=== PATIENT | male | born 1940 | race Caucasian/White ===

== ENCOUNTER 2017-05-05 08:26 | Emergency (ER) | payer MEDICARE, BC ==
--- NOTE | 2017-05-05 09:53 | EDM.PDOC ---
ED HPI GENERAL MEDICAL PROBLEM - General Chief Complaint: ENT Problem Stated Complaint: NOSE BLEED Time Seen by Provider: 05/05/17 09:10 Source of Information: Reports: Patient, Family History Limitations: Reports: No Limitations - History of Present Illness INITIAL COMMENTS - FREE TEXT/NARRATIVE: 76-year-old male with persistent recurring left-sided epistaxis, occasionally right-sided as well. Up until this morning has been able to get it stopped, but this morning without any provocation it started bleeding out of both sides and has been persistent. It seemed to start on the left again. He is on aspirin daily but no other anticoagulants. He's had no recent trauma to the nose, he is on BiPAP and the air in their home is dry. Onset: Unknown/Unsure Severity: Moderate Associated Symptoms: Reports: No Other Symptoms - Related Data Allergies Allergy/AdvReac Type Severity Reaction Status Date / Time codeine Allergy Dizziness Verified 03/24/13 08:12 Penicillins Allergy Confusion Verified 03/24/13 08:12 Home Meds: Home Meds Hydrochlorothiazide 12.5 mg PO DAILY 03/24/13 [History] Aspirin 05/05/17 [History] Metoprolol Tartrate 05/05/17 [History] atorvaSTATin [Lipitor] 05/05/17 [History] Past Medical History Gastrointestinal History: Reports: GI Bleed Other Oncologic History: TONGUE - Past Surgical History Cardiovascular Surgical History: Reports: Valve Replacement GI Surgical History: Reports: Colonoscopy Musculoskeletal Surgical History: Reports: Arthroscopic Knee Social & Family History - Tobacco Use Years of Tobacco use: 56 Used Tobacco, but Quit: No Second Hand Smoke Exposure: No - Alcohol Use Days Per Week of Alcohol Use: 7 Number of Drinks Per Day: 2 Total Drinks Per Week: 14 - Recreational Drug Use Recreational Drug Use: No ED ROS ENT - Review of Systems Review Of Systems: See Below Constitutional: Denies: Fever, Chills HEENT: Reports: Nosebleed Respiratory: Denies: Shortness of Breath, Cough Cardiovascular: Denies: Chest Pain, Palpitations GI/Abdominal: Denies: Nausea, Vomiting Skin: Reports: No Symptoms Neurological: Denies: Headache ED EXAM, ENT - Physical Exam Exam: See Below Exam Limited By: No Limitations General Appearance: Alert, No Apparent Distress (Patient is uncomfortable but not distressed) Nose: Other (There is fresh clots and a small amount of active bleeding from the left nares after the clots were blown out of the nose bilaterally.) Head: Atraumatic Respiratory/Chest: No Respiratory Distress Course - Vital Signs Last Recorded V/S: Last Vital Signs Temp 97.0 F 05/05/17 09:01 Pulse 69 05/05/17 09:01 Resp 14 05/05/17 09:01 BP 168/76 H 05/05/17 09:01 Pulse Ox 95 05/05/17 09:01 - Re-Assessments/Exams Free Text/Narrative Re-Assessment/Exam: 05/05/17 09:52 External pressure was applied for 10-15 minutes, when removed a 5.5 cm rapid Rhino was placed in the left nares. He continued to have some intermittent slight bleeding out of the right side but it slowly improved. 05/05/17 10:20 Patient was observed for the next 45 minutes. Generally the bleeding was controlled. He is going to return for recheck tomorrow morning at which time we may remove the packing, he'll return sooner if worsening or concerns Departure - Departure Time of Disposition: 10:27 Disposition: Home, Self-Care 01 Condition: Good Clinical Impression: Epistaxis - Discharge Information Instructions: Nosebleed, Adult Referrals: PCP,None [Primary Care Provider] - Forms: ED Department Discharge Care Plan Goals: Return tomorrow morning to remove the packing, otherwise return sooner if bleeding recurs persistently despite the nasal packing being in place.
== END 2017-05-05 10:28 | disposition home or self-care (01) ==
LOC: JP.ED 08:26
DX: R04.0 Epistaxis (principal); Z88.0 Allergy status to penicillin; Z88.5 Allergy status to narcotic agent; Z79.899 Other long term (current) drug therapy
CPT/HCPCS: 30903; 99283-25

== ENCOUNTER 2017-05-05 15:20 | Emergency (ER) | payer MEDICARE, BC ==
--- NOTE | 2017-05-05 15:34 | EDM.PDOC ---
ED HPI GENERAL MEDICAL PROBLEM - General Stated Complaint: BLOODY NOSE Time Seen by Provider: 05/05/17 15:20 Source of Information: Reports: Patient, Family History Limitations: Reports: No Limitations - History of Present Illness INITIAL COMMENTS - FREE TEXT/NARRATIVE: 76-year-old male who was here earlier today and had a rapid Rhino placed in the left nares returns after failure of the balloon to hold air, and now bleeding on the right side as well. Associated Symptoms: Reports: No Other Symptoms - Related Data Allergies Allergy/AdvReac Type Severity Reaction Status Date / Time codeine Allergy Dizziness Verified 03/24/13 08:12 Penicillins Allergy Confusion Verified 03/24/13 08:12 Home Meds: Home Meds Hydrochlorothiazide 12.5 mg PO DAILY 03/24/13 [History] Aspirin 05/05/17 [History] Metoprolol Tartrate 05/05/17 [History] atorvaSTATin [Lipitor] 05/05/17 [History] Past Medical History Gastrointestinal History: Reports: GI Bleed Other Oncologic History: TONGUE - Past Surgical History Cardiovascular Surgical History: Reports: Valve Replacement GI Surgical History: Reports: Colonoscopy Musculoskeletal Surgical History: Reports: Arthroscopic Knee Social & Family History - Tobacco Use Years of Tobacco use: 56 Used Tobacco, but Quit: No Second Hand Smoke Exposure: No - Alcohol Use Days Per Week of Alcohol Use: 7 Number of Drinks Per Day: 2 Total Drinks Per Week: 14 - Recreational Drug Use Recreational Drug Use: No ED ROS ENT - Review of Systems Review Of Systems: See Below Constitutional: Denies: Fever Respiratory: Denies: Shortness of Breath GI/Abdominal: Denies: Nausea, Vomiting Skin: Reports: No Symptoms Neurological: Denies: Headache ED EXAM, ENT - Physical Exam Exam: See Below Exam Limited By: No Limitations General Appearance: Alert, No Apparent Distress Nose: Other (Active bleeding from both nares at this time) Head: Atraumatic Respiratory/Chest: No Respiratory Distress Course - Vital Signs Last Recorded V/S: Last Vital Signs Temp 97.2 F 05/05/17 15:52 Pulse 68 05/05/17 15:52 Resp 14 05/05/17 15:52 BP 176/80 H 05/05/17 15:52 Pulse Ox 96 05/05/17 15:52 - Re-Assessments/Exams Free Text/Narrative Re-Assessment/Exam: 05/05/17 15:44 A 7.5 cm rapid Rhino was placed in the left nares, and a 5.5 in the right after the patient cleared all blood clots from the nasal passageway. He'll return tomorrow afternoon to remove the packing. Departure - Departure Time of Disposition: 16:16 Disposition: Home, Self-Care 01 Condition: Fair Clinical Impression: Epistaxis - Discharge Information Instructions: Nosebleed, Adult, [id number] Referrals: PCP,None [Primary Care Provider] - Forms: ED Department Discharge Care Plan Goals: Return tomorrow afternoon for removal of nasal packing, or return sooner if difficulties or concerns.
== END 2017-05-05 16:16 | disposition home or self-care (01) ==
LOC: JP.ED 15:20
DX: R04.0 Epistaxis (principal); Z88.5 Allergy status to narcotic agent; Z88.0 Allergy status to penicillin; Z79.899 Other long term (current) drug therapy
CPT/HCPCS: 30903; 99283-25

== ENCOUNTER 2017-05-06 11:08 | Emergency (ER) | payer MEDICARE, BC ==
[2017-05-06] MEDS ORDERED: Silver Nitrate Applicator Each TOP ONE (11:25)
--- NOTE | 2017-05-06 12:56 | EDM.PDOC ---
ED HPI GENERAL MEDICAL PROBLEM - General Chief Complaint: ENT Problem Stated Complaint: BLOODY NOSE Time Seen by Provider: 05/06/17 11:45 Source of Information: Reports: Patient, Family History Limitations: Reports: No Limitations - History of Present Illness INITIAL COMMENTS - FREE TEXT/NARRATIVE: 76-year-old male in for nasal packing removal. Despite the packing being present , he still had active bleeding several times overnight from the left side. There is currently no hemorrhaging. Severity: Moderate - Related Data Allergies Allergy/AdvReac Type Severity Reaction Status Date / Time codeine Allergy Dizziness Verified 05/06/17 11:22 Penicillins Allergy Confusion Verified 05/06/17 11:22 Home Meds: Home Meds Hydrochlorothiazide 12.5 mg PO DAILY 03/24/13 [History] Aspirin 05/05/17 [History] Metoprolol Tartrate 05/05/17 [History] atorvaSTATin [Lipitor] 05/05/17 [History] Past Medical History Gastrointestinal History: Reports: GI Bleed Other Oncologic History: TONGUE - Past Surgical History Cardiovascular Surgical History: Reports: Valve Replacement GI Surgical History: Reports: Colonoscopy Musculoskeletal Surgical History: Reports: Arthroscopic Knee Social & Family History - Tobacco Use Smoking Status *Q: Never Smoker Years of Tobacco use: 56 Used Tobacco, but Quit: No Second Hand Smoke Exposure: No - Alcohol Use Days Per Week of Alcohol Use: 7 Number of Drinks Per Day: 2 Total Drinks Per Week: 14 - Recreational Drug Use Recreational Drug Use: No ED ROS ENT - Review of Systems Review Of Systems: See Below Constitutional: Denies: Fever, Chills Respiratory: Denies: Shortness of Breath GI/Abdominal: Reports: Nausea, Other (Developed some dark stools this morning from his recent bleeding). Denies: Vomiting Skin: Reports: No Symptoms ED EXAM, ENT - Physical Exam Exam: See Below Exam Limited By: No Limitations General Appearance: Alert, No Apparent Distress Nose: Other (Nasal packing is present bilaterally) Respiratory/Chest: No Respiratory Distress, Lungs Clear Course - Vital Signs Last Recorded V/S: Last Vital Signs Temp 96.8 F 05/06/17 11:42 Pulse 84 05/06/17 11:42 Resp 14 05/06/17 11:42 BP 156/86 H 05/06/17 11:42 Pulse Ox 96 05/06/17 11:42 - Orders/Labs/Meds Meds: Medications Discontinued Medications Generic Name Dose Route Start Last Admin Trade Name Charbel PRN Reason Stop Dose Admin Silver Nitrate 1 each 05/06/17 11:25 05/06/17 13:19 Silver Nitrate TOP 05/06/17 11:26 1 each ONETIME ONE Administration - Re-Assessments/Exams Free Text/Narrative Re-Assessment/Exam: 05/06/17 16:49 The right nasal packing was removed and was clean, the nares examined and was normal. The left was removed, and a small amount of hemorrhage resumed. I felt I could see the active site of bleeding on the first turbinate so this was cauterized with silver nitrate. Pressure was applied and the bleeding stopped, 30 minutes later however the patient was eating a meal and the bleeding resumed on the left side. We then applied wound seal powder, applied external pressure, and I consult the ENT in [place]. They were kind enough to agree to see him so the patient will go by private car to [place] for an ENT consultation. Departure - Departure Time of Disposition: 13:20 Disposition: DC/Tfer to Other 70 Condition: Fair Clinical Impression: Epistaxis - Discharge Information Referrals: PCP,None [Primary Care Provider] - Forms: ED Department Discharge Care Plan Goals: Go directly to the [facility] ER for reevaluation. Keep clamp on nose during transport.
== END 2017-05-06 13:21 | disposition other institution (70) ==
LOC: JP.ED 11:08
DX: R04.0 Epistaxis (principal); Z88.5 Allergy status to narcotic agent; Z88.1 Allergy status to other antibiotic agents; Z79.899 Other long term (current) drug therapy
CPT/HCPCS: 30901; 99284-25

== ENCOUNTER 2017-05-27 11:26 | Emergency (ER) | payer MEDICARE, BC ==
[2017-05-27] MEDS ORDERED: Silver Nitrate Applicator Each ONE (11:59)
--- NOTE | 2017-05-27 12:21 | EDM.PDOC ---
ED HPI GENERAL MEDICAL PROBLEM - General Chief Complaint: ENT Problem Stated Complaint: BLOODY NOSE Time Seen by Provider: 05/27/17 12:15 Source of Information: Reports: Patient, RN Notes Reviewed History Limitations: Reports: No Limitations - History of Present Illness INITIAL COMMENTS - FREE TEXT/NARRATIVE: 76-year-old gentleman presents to the emergency department today complaint of nosebleed, he has had a problem with this in the past has visited with ear nose and throat as well unfortunately this morning his nose started bleeding at around 11 AM I was unable to get it controlled at home the etiology is unknown. - Related Data Allergies Allergy/AdvReac Type Severity Reaction Status Date / Time codeine Allergy Dizziness Verified 05/27/17 11:44 Penicillins Allergy Confusion Verified 05/27/17 11:44 Home Meds: Home Meds Hydrochlorothiazide 12.5 mg PO DAILY 03/24/13 [History] Aspirin 81 g PO ASDIRECTED 05/05/17 [History] Metoprolol Tartrate 12.5 mg PO BID 05/05/17 [History] atorvaSTATin [Lipitor] 20 mg PO BEDTIME 05/05/17 [History] Past Medical History Gastrointestinal History: Reports: GI Bleed Other Oncologic History: TONGUE - Past Surgical History Other HEENT Surgeries/Procedures: NOSEBLEED Cardiovascular Surgical History: Reports: Valve Replacement GI Surgical History: Reports: Colonoscopy Musculoskeletal Surgical History: Reports: Arthroscopic Knee Social & Family History - Tobacco Use Smoking Status *Q: Unknown Ever Smoked Years of Tobacco use: 56 Used Tobacco, but Quit: No Second Hand Smoke Exposure: No - Alcohol Use Days Per Week of Alcohol Use: 7 Number of Drinks Per Day: 2 Total Drinks Per Week: 14 - Recreational Drug Use Recreational Drug Use: No ED ROS ENT - Review of Systems Review Of Systems: See Below Constitutional: Reports: No Symptoms HEENT: Reports: Nosebleed Respiratory: Reports: No Symptoms Cardiovascular: Reports: No Symptoms GI/Abdominal: Reports: No Symptoms ED EXAM, ENT - Physical Exam Exam: See Below Text/Narrative:: Mouth mucosa is moist and pink he does have bright red blood in the posterior pharynx, examination of the nose I do not appreciate any bleeding site in the left naris there is active bleeding through the left naris Exam Limited By: No Limitations General Appearance: Alert, Mild Distress ED ENT PROCEDURES - Epistaxis Procedure Indication: Epistaxis Recent anticoagulants/antiplatlets: Yes (Baby aspirin) Uncontrolled HTN: No Recent septal/nasal surgery: No Site of bleeding: Left Nare Clearing of clots: Patient Blew Nose, Suction Posterior packing: Long Inflatable Nasal Tampon Local Anesthetic Volume: 5cc Complications: No Course - Vital Signs Last Recorded V/S: Last Vital Signs Temp 97.5 F 05/27/17 11:39 Pulse 66 05/27/17 11:39 Resp 15 05/27/17 11:39 BP 159/126 H 05/27/17 11:39 Pulse Ox 98 05/27/17 11:39 - Orders/Labs/Meds Meds: Medications Discontinued Medications Generic Name Dose Route Start Last Admin Trade Name Charbel PRN Reason Stop Dose Admin Silver Nitrate Confirm 05/27/17 11:59 Silver Nitrate Administered 05/27/17 12:00 Dose 1 each .ROUTE .STK-MED ONE Departure - Departure Time of Disposition: 12:57 Disposition: Home, Self-Care 01 Condition: Good Clinical Impression: Epistaxis - Discharge Information Referrals: PCP,None [Primary Care Provider] - Forms: ED Department Discharge Additional Instructions: Take full course of antibiotics, hold your aspirin over the next couple of days , please call to your ear nose and throat on Monday morning for an appointment for follow-up, call or return to the emergency department worsening of symptoms - Assessment/Plan Plan: Assessment Acuity = acute Site and laterality = left naris epistaxis Etiology = unknown etiology Manifestations = none Location of injury = Home Lab values = none Plan Plan is to call his ear nose and throat on Monday for follow-up appointment, he is placed on prophylactic antibiotics of clindamycin 300 mg 4 times a day 7 days This note was dictated using [employer] voice recognition software please call with any questions on syntax or maranda.
== END 2017-05-27 13:27 | disposition home or self-care (01) ==
LOC: JP.ED 11:26
DX: R04.0 Epistaxis (principal); Z88.5 Allergy status to narcotic agent; Z88.0 Allergy status to penicillin; Z79.899 Other long term (current) drug therapy
CPT/HCPCS: 30901; 99283-25

== ENCOUNTER 2018-11-18 23:45 | Emergency (ER) | payer MEDICARE, BC ==
--- NOTE | 2018-11-19 00:39 | EDM.PDOC ---
ED HPI GENERAL MEDICAL PROBLEM - General Chief Complaint: ENT Problem Stated Complaint: BLOODY NOSE Time Seen by Provider: 11/19/18 00:37 Source of Information: Reports: Patient, Family, RN Notes Reviewed History Limitations: Reports: No Limitations - History of Present Illness INITIAL COMMENTS - FREE TEXT/NARRATIVE: 78-year-old gentleman presents emergency department today with bleeding from his left naris just started today he has had problems with bleeding in the past only blood thinner he takes is aspirin denies Pain Score (Numeric/FACES): 0 - Related Data Allergies Allergy/AdvReac Type Severity Reaction Status Date / Time codeine Allergy Dizziness Verified 11/18/18 23:57 Penicillins Allergy Confusion Verified 11/18/18 23:57 Home Meds: Home Meds hydroCHLOROthiazide [Hydrochlorothiazide] 12.5 mg PO DAILY 03/24/13 [History] Aspirin 81 g PO ASDIRECTED 05/05/17 [History] Metoprolol Tartrate 12.5 mg PO BID 05/05/17 [History] atorvaSTATin [Lipitor] 20 mg PO BEDTIME 05/05/17 [History] Past Medical History HEENT History: Reports: Hard of Hearing, Retinal Detachment Cardiovascular History: Reports: CAD, [place] Gastrointestinal History: Reports: GI Bleed Hematologic History: Reports: Blood Transfusion(s) Other Oncologic History: TONGUE - Infectious Disease History Infectious Disease History: Reports: Chicken Pox, Measles, Mumps - Past Surgical History Other HEENT Surgeries/Procedures: NOSEBLEED hearing aides Cardiovascular Surgical History: Reports: Valve Replacement GI Surgical History: Reports: Colonoscopy Musculoskeletal Surgical History: Reports: Arthroscopic Knee Social & Family History - Tobacco Use Smoking Status *Q: Former Smoker Years of Tobacco use: 50 Packs/Tins Daily: 2 Used Tobacco, but Quit: Yes Month/Year Tobacco Last Used: 2013 Second Hand Smoke Exposure: No - Caffeine Use Caffeine Use: Reports: Coffee, Soda - Alcohol Use Days Per Week of Alcohol Use: 7 Number of Drinks Per Day: 3 Total Drinks Per Week: 21 - Recreational Drug Use Recreational Drug Use: No ED ROS ENT - Review of Systems Review Of Systems: See Below HEENT: Reports: Nosebleed ED EXAM, ENT - Physical Exam Exam: See Below Text/Narrative:: Initially came in had a blow his nose all clots were evacuated and the nose clamp placed on a weighted approximately 15 minutes then reexamination of the nose I don't appreciate any blood draining posteriorly there is dried blood around the left naris I do not appreciate any active site will do watchful waiting at this time Exam Limited By: No Limitations General Appearance: Alert, WD/WN, No Apparent Distress Course - Vital Signs Last Recorded V/S: Last Vital Signs Temp 98.7 F 11/19/18 00:10 Pulse 75 11/19/18 00:10 Resp 16 11/19/18 00:10 BP 178/72 H 11/19/18 00:10 Pulse Ox 95 11/19/18 00:10 Departure - Departure Time of Disposition: 01:15 Disposition: Home, Self-Care 01 Condition: Fair Clinical Impression: Epistaxis - Discharge Information Instructions: Nosebleed, [id number] Referrals: PCP,None [Primary Care Provider] - Forms: ED Department Discharge Additional Instructions: Please followup with your primary care provider in 3-5 days if not better, please call return to the emergency department with worsening of symptoms. - Assessment/Plan Plan: Assessment Acuity = acute Site and laterality = epistasis Etiology = unknown etiology Manifestations = none Location of injury = Home Lab values = none Plan Good control was achieved with, standard technique, follow-up primary care 3-5 days for reevaluation This note was dictated using [employer] voice recognition software please call with any questions on syntax or grammar.
== END 2018-11-19 01:22 | disposition home or self-care (01) ==
LOC: JP.ED 23:45
DX: R04.0 Epistaxis (principal); I25.10 Atherosclerotic heart disease of native coronary artery without angina pectoris; I25.2 Old myocardial infarction; Z87.891 Personal history of nicotine dependence; Z88.0 Allergy status to penicillin; Z88.5 Allergy status to narcotic agent; Z79.899 Other long term (current) drug therapy
CPT/HCPCS: 99283

== ENCOUNTER 2018-11-19 06:51 | Emergency (ER) | payer MEDICARE, BC ==
[2018-11-19] MEDS ORDERED: Metoprolol Tartrate 25 MG Tab PO ONE (07:20)
--- NOTE | 2018-11-19 07:34 | EDM.PDOC ---
ED HPI GENERAL MEDICAL PROBLEM - General Chief Complaint: ENT Problem Stated Complaint: nose bleed Time Seen by Provider: 11/19/18 07:15 Source of Information: Reports: Patient, Old Records, RN History Limitations: Reports: No Limitations - History of Present Illness INITIAL COMMENTS - FREE TEXT/NARRATIVE: 78 [facility] returns for L sided nose bleed. He was seen last night and his nose was not bleeding so no packing or cautery was performed. This morning his nose is bleeding again so he returns. He has not been seen for his BP in about a year, has his next appt in December. Is on ASA 81 mg 4 days per week as his only anticoagulant. He has not checked his BP that he is aware of since his last [facility] app[facility]. He thinks the blood is going down his throat in an equal amount to that coming out of the front of his nose. He has not taken any of his medications yet today. Onset: Sudden Onset Date: 11/18/18 Duration: Minutes:, Intermittent Location: Reports: Face (L nostril) Quality: Reports: Other (no pain) Severity: Moderate Improves with: Reports: None Worsens with: Reports: Other (unknown) Context: Reports: Other (see HPI) Associated Symptoms: Reports: No Other Symptoms Treatments EMPLOYMENT [employer] EXAMINER: Reports: Other (see below) (none) - Related Data Allergies Allergy/AdvReac Type Severity Reaction Status Date / Time codeine Allergy Dizziness Verified 11/18/18 23:57 Penicillins Allergy Confusion Verified 11/18/18 23:57 Home Meds: Home Meds hydroCHLOROthiazide [Hydrochlorothiazide] 12.5 mg PO DAILY 03/24/13 [History] Aspirin 81 g PO ASDIRECTED 05/05/17 [History] Metoprolol Tartrate 12.5 mg PO BID 05/05/17 [History] atorvaSTATin [Lipitor] 20 mg PO BEDTIME 05/05/17 [History] Past Medical History HEENT History: Reports: Hard of Hearing, Retinal Detachment Cardiovascular History: Reports: CAD, [place] Gastrointestinal History: Reports: GI Bleed Hematologic History: Reports: Blood Transfusion(s) Other Oncologic History: TONGUE - Infectious Disease History Infectious Disease History: Reports: Chicken Pox, Measles, Mumps - Past Surgical History Other HEENT Surgeries/Procedures: NOSEBLEED hearing aides Cardiovascular Surgical History: Reports: Valve Replacement GI Surgical History: Reports: Colonoscopy Musculoskeletal Surgical History: Reports: Arthroscopic Knee Social & Family History - Tobacco Use Smoking Status *Q: Never Smoker - Caffeine Use Caffeine Use: Reports: Coffee - Recreational Drug Use Recreational Drug Use: No ED ROS ENT - Review of Systems Review Of Systems: See Below Constitutional: Reports: No Symptoms HEENT: Reports: Nosebleed (left, front and back) Respiratory: Reports: No Symptoms Cardiovascular: Reports: Blood Pressure Problem (was in the 170's last night) Endocrine: Reports: No Symptoms GI/Abdominal: Reports: No Symptoms : Reports: No Symptoms Musculoskeletal: Reports: No Symptoms Skin: Reports: No Symptoms Neurological: Reports: No Symptoms ED EXAM, ENT - Physical Exam Exam: See Below Exam Limited By: No Limitations General Appearance: Alert, WD/WN, Mild Distress Eye Exam: Bilateral Eye: Normal Inspection Ears: Normal External Exam, Normal Canal, Hearing Grossly Normal Nose: Active Bleeding (L nares, more anterior, but some posteriorly.). No: No Blood, Dried Blood Mouth/Throat: Normal Inspection, Normal Lips, Normal Oropharynx, Other (some bleeding down the back of his throat from his nasopharynx.) Head: Atraumatic, Normocephalic Neck: Normal Inspection Respiratory/Chest: No Respiratory Distress, Lungs Clear, Normal Breath Sounds, No Accessory Muscle Use Cardiovascular: Regular Rate, Rhythm, No Edema Extremities: Normal Inspection Neurological: Alert, Oriented, CN II-XII Intact, Normal Cognition, No Motor/ Sensory Deficits Psychiatric: Normal Affect, Normal Mood Skin: Warm, Dry, Intact, Normal Color, No Rash Course - Vital Signs Text/Narrative:: 12 ml of air placed in Rhino Rocket to control bleeding. BP 147 and HR 63 after 25 mg of metoprolol tartrate. Last Recorded V/S: Last Vital Signs Temp 36.4 C 11/19/18 07:19 Pulse 74 11/19/18 07:25 Resp 16 11/19/18 07:19 BP 192/81 H 11/19/18 07:25 Pulse Ox 94 L 11/19/18 07:19 - Orders/Labs/Meds Meds: Medications Discontinued Medications Generic Name Dose Route Start Last Admin Trade Name Freq PRN Reason Stop Dose Admin Metoprolol Tartrate 25 mg 11/19/18 07:20 11/19/18 07:25 Lopressor PO 11/19/18 07:21 25 mg ONETIME ONE Administration Departure - Departure Time of Disposition: 08:25 Disposition: Home, Self-Care 01 Condition: Fair Clinical Impression: Epistaxis not due to trauma HTN (hypertension) Qualifiers: Hypertension type: essential hypertension Qualified Code(s): I10 - Essential ( primary) hypertension - Discharge Information *PRESCRIPTION DRUG MONITORING PROGRAM REVIEWED*: No *COPY OF PRESCRIPTION DRUG MONITORING REPORT IN PATIENT TIARRA: No Instructions: Hypertension, [id number], Nosebleed, [id number] Referrals: PCP,None [Primary Care Provider] - Forms: ED Department Discharge Additional Instructions: Increase your metoprolol tartrate to 25 mg every 12 hrs, next dose early this evening. Other medicines as currently. Your Rhino Rocket should come out in about 3 days. Return for problems in the interim.
== END 2018-11-19 08:35 | disposition home or self-care (01) ==
LOC: JP.ED 06:51
DX: R04.0 Epistaxis (principal); I10 Essential (primary) hypertension; I25.2 Old myocardial infarction; Z88.5 Allergy status to narcotic agent; Z88.0 Allergy status to penicillin; Z79.82 Long term (current) use of aspirin; Z79.899 Other long term (current) drug therapy
CPT/HCPCS: 30903; 99283; A9270

== ENCOUNTER 2018-11-19 11:53 | Emergency (ER) | payer MEDICARE, BC ==
[2018-11-19] MEDS ORDERED: Hydrochlorothiazide 25 MG Tab PO ONE (12:05)
--- NOTE | 2018-11-19 12:11 | EDM.PDOC ---
ED HPI GENERAL MEDICAL PROBLEM - General Chief Complaint: ENT Problem Stated Complaint: NOSE BLEED Time Seen by Provider: 11/19/18 12:00 Source of Information: Reports: Patient, Old Records, RN History Limitations: Reports: No Limitations - History of Present Illness INITIAL COMMENTS - FREE TEXT/NARRATIVE: 78 yo male seen here this morning for L sided epistaxis returns now with R sided epistaxis. BP came down to upper 140's while here last time, now quite elevated again. ASA 81 mg daily is his only blood thinner. Has not taken his HCTZ yet today. Onset: Today, Sudden Onset Date: 11/19/18 Onset Time: 11:35 Duration: Minutes:, Constant Location: Reports: Face (R nares) Quality: Reports: Other (no pain) Severity: Moderate Improves with: Reports: None Worsens with: Reports: Other (unknown) Context: Reports: Other (see HPI) Associated Symptoms: Reports: No Other Symptoms Treatments [employer]: Reports: Other (see below) (none) - Related Data Allergies Allergy/AdvReac Type Severity Reaction Status Date / Time codeine Allergy Dizziness Verified 11/18/18 23:57 Penicillins Allergy Confusion Verified 11/18/18 23:57 Home Meds: Home Meds hydroCHLOROthiazide [Hydrochlorothiazide] 12.5 mg PO DAILY 03/24/13 [History] Aspirin 81 g PO ASDIRECTED 05/05/17 [History] Metoprolol Tartrate 12.5 mg PO BID 05/05/17 [History] atorvaSTATin [Lipitor] 20 mg PO BEDTIME 05/05/17 [History] Past Medical History HEENT History: Reports: Hard of Hearing, Retinal Detachment Cardiovascular History: Reports: CAD, [place] Gastrointestinal History: Reports: GI Bleed Hematologic History: Reports: Blood Transfusion(s) Other Oncologic History: TONGUE - Infectious Disease History Infectious Disease History: Reports: Chicken Pox, Measles, Mumps - Past Surgical History Other HEENT Surgeries/Procedures: NOSEBLEED hearing aides Cardiovascular Surgical History: Reports: Valve Replacement GI Surgical History: Reports: Colonoscopy Musculoskeletal Surgical History: Reports: Arthroscopic Knee Social & Family History - Tobacco Use Smoking Status *Q: Never Smoker - Caffeine Use Caffeine Use: Reports: Coffee - Recreational Drug Use Recreational Drug Use: No ED ROS ENT - Review of Systems Review Of Systems: See Below Constitutional: Reports: No Symptoms HEENT: Reports: Nosebleed (now right side) Respiratory: Reports: No Symptoms Cardiovascular: Reports: No Symptoms GI/Abdominal: Reports: No Symptoms : Reports: No Symptoms Skin: Reports: No Symptoms Neurological: Reports: No Symptoms ED EXAM, ENT - Physical Exam Exam: See Below Exam Limited By: No Limitations General Appearance: Alert, WD/WN, No Apparent Distress Eye Exam: Bilateral Eye: Normal Inspection Ears: Normal External Exam, Normal Canal, Hearing Grossly Normal Nose: Active Bleeding (R nares, Rhino Rocket already in L nares.) Mouth/Throat: Other (blood at back of throat) Head: Atraumatic, Normocephalic Neck: Normal Inspection Respiratory/Chest: No Respiratory Distress, Lungs Clear, No Accessory Muscle Use Cardiovascular: Regular Rate, Rhythm, No Edema Extremities: Normal Inspection, Normal Range of Motion, Non-Tender, No Pedal Edema Neurological: Alert, Oriented, CN II-XII Intact, Normal Cognition, No Motor/ Sensory Deficits Psychiatric: Normal Affect, Normal Mood Skin: Warm, Dry, Intact, Normal Color, No Rash Course - Vital Signs Text/Narrative:: Rhino Rocket placed in R nares. 7.5 cm(now same bilat) Last Recorded V/S: Last Vital Signs Temp 36.5 C 11/19/18 11:56 Pulse 70 11/19/18 13:23 Resp 18 11/19/18 11:56 BP 162/66 H 11/19/18 13:23 Pulse Ox 95 11/19/18 11:56 - Orders/Labs/Meds Labs: Laboratory Tests 11/19/18 Range/Units 12:13 Sodium 137 L (140-148) mmol/L Potassium 4.1 (3.6-5.2) mmol/L Chloride 101 (100-108) mmol/L Carbon Dioxide 27 (21-32) mmol/L Anion Gap 13.1 (5.0-14.0) mmol/L BUN 20 H D (7-18) mg/dL Creatinine 1.0 (0.8-1.3) mg/dL Est Cr Clr Drug Dosing TNP Estimated GFR (MDRD) > 60 (>60) Glucose 107 H (74-106) mg/dL Calcium 9.0 (8.5-10.1) mg/dL Meds: Medications Discontinued Medications Generic Name Dose Route Start Last Admin Trade Name Freq PRN Reason Stop Dose Admin Hydrochlorothiazide 25 mg 11/19/18 12:05 11/19/18 12:43 Hydrochlorothiazide PO 11/19/18 12:06 25 mg ONETIME ONE Administration Departure - Departure Time of Disposition: 13:33 Disposition: Home, Self-Care 01 Condition: Fair Clinical Impression: Epistaxis not due to trauma - Discharge Information *PRESCRIPTION DRUG MONITORING PROGRAM REVIEWED*: No *COPY OF PRESCRIPTION DRUG MONITORING REPORT IN PATIENT TIARRA: No Referrals: PCP,None [Primary Care Provider] - Forms: ED Department Discharge Additional Instructions: See your instructions from this morning. Follow these as previously documented. Return as needed.
== END 2018-11-19 13:45 | disposition home or self-care (01) ==
LOC: JP.ED 11:53
DX: R04.0 Epistaxis (principal); I25.2 Old myocardial infarction; I25.10 Atherosclerotic heart disease of native coronary artery without angina pectoris; Z88.5 Allergy status to narcotic agent; Z88.0 Allergy status to penicillin; Z79.82 Long term (current) use of aspirin
CPT/HCPCS: 30901; 30903; 36415; 80048; 99283; A9270

== ENCOUNTER 2018-11-21 16:11 | Emergency (ER) | payer MEDICARE, BC ==
--- NOTE | 2018-11-21 17:04 | EDM.PDOC ---
ED HPI GENERAL MEDICAL PROBLEM - General Chief Complaint: ENT Problem Stated Complaint: REMOVE NASAL TUBES Time Seen by Provider: 11/21/18 16:59 Source of Information: Reports: Patient, Family, Old Records, RN Notes Reviewed History Limitations: Reports: No Limitations - History of Present Illness INITIAL COMMENTS - FREE TEXT/NARRATIVE: 78-year-old gentleman presents emergency department today for removal of nasal tampons, they replaced 3 days - Related Data Allergies Allergy/AdvReac Type Severity Reaction Status Date / Time codeine Allergy Dizziness Verified 11/21/18 16:33 Penicillins Allergy Confusion Verified 11/21/18 16:33 Home Meds: Home Meds hydroCHLOROthiazide [Hydrochlorothiazide] 25 mg PO BID 03/24/13 [History] Aspirin 81 g PO ASDIRECTED 05/05/17 [History] Metoprolol Tartrate 12.5 mg PO BID 05/05/17 [History] atorvaSTATin [Lipitor] 20 mg PO BEDTIME 05/05/17 [History] Past Medical History HEENT History: Reports: Hard of Hearing, Retinal Detachment Cardiovascular History: Reports: CAD, [place] Gastrointestinal History: Reports: GI Bleed Hematologic History: Reports: Blood Transfusion(s) Other Oncologic History: TONGUE - Infectious Disease History Infectious Disease History: Reports: Chicken Pox, Measles, Mumps - Past Surgical History Other HEENT Surgeries/Procedures: NOSEBLEED hearing aides Cardiovascular Surgical History: Reports: Valve Replacement GI Surgical History: Reports: Colonoscopy Musculoskeletal Surgical History: Reports: Arthroscopic Knee Social & Family History - Caffeine Use Caffeine Use: Reports: Coffee ED ROS ENT - Review of Systems Review Of Systems: See Below Constitutional: Reports: No Symptoms HEENT: Reports: No Symptoms ED EXAM, ENT - Physical Exam Exam: See Below Text/Narrative:: Both balloons removed at 1704, no visible bleeding at that time Exam Limited By: No Limitations General Appearance: Alert, WD/WN, No Apparent Distress Course - Vital Signs Last Recorded V/S: Last Vital Signs Temp 99.5 F 11/21/18 16:42 Pulse 96 11/21/18 16:42 Resp 19 11/21/18 16:42 BP 155/81 H 11/21/18 16:42 Pulse Ox 97 11/21/18 16:42 - Orders/Labs/Meds Meds: Medications Discontinued Medications Generic Name Dose Route Start Last Admin Trade Name Freq PRN Reason Stop Dose Admin Oxymetazoline HCl 1 ml 10/02/19 17:52 11/21/18 18:03 Nasal Decongestant Marine JEROME 11/21/18 17:53 1 spray ONETIME ONE Administration Departure - Departure Time of Disposition: 18:18 Disposition: Home, Self-Care 01 Condition: Fair Clinical Impression: Encounter for removal of nasal packing - Discharge Information Referrals: PCP,None [Primary Care Provider] - Forms: ED Department Discharge Additional Instructions: Please call to the [facility] in the morning for an appointment time with ear nose and throat call or return to the ED with worsening of symptoms - Assessment/Plan Plan: Assessment Acuity = acute Site and laterality = nasal tampon removal Etiology = unknown etiology Manifestations = none Location of injury = Home Lab values = none Plan Referral was set up for ear nose and throat he will contact the clinic in the morning for an appointment time, the wounds were removed no bleeding since removal This note was dictated using [employer] voice recognition software please call with any questions on syntax or grammar.
[2018-11-21] MEDS ORDERED: Oxymetazoline 0.05% Nasal Spray 30 ML Bottle NAS ONE (17:52)
== END 2018-11-21 18:42 | disposition home or self-care (01) ==
LOC: JP.ED 16:11
DX: Z48.00 Encounter for change or removal of nonsurgical wound dressing (principal); I25.10 Atherosclerotic heart disease of native coronary artery without angina pectoris; I25.2 Old myocardial infarction; Z88.5 Allergy status to narcotic agent; Z88.0 Allergy status to penicillin; Z79.82 Long term (current) use of aspirin; Z79.899 Other long term (current) drug therapy
CPT/HCPCS: 99283; A9270-GY

== ENCOUNTER 2021-05-08 19:59 | Emergency (ER) | payer MEDICARE, BC ==
[2021-05-08] MEDS ORDERED: Lactated Ringers 1,000 ML IV SCH (21:00)
[2021-05-08] MEDS ORDERED: cefTRIAXone 1 GM in Sodium Chloride 0.9% 50 ML IV SCH (21:00)
[2021-05-08] MEDS ORDERED: Ibuprofen 600 MG Tab PO ONE (21:30)
[2021-05-08] MEDS ORDERED: Metoprolol Tartrate 25 MG Tab PO ONE (22:04)
[2021-05-08] MEDS ORDERED: Iopamidol 755 Mg/ML 100 ML Bottle IV STA (22:53)
[2021-05-08] MEDS ORDERED: Sodium Chloride 0.9% 75 ML IV STA (22:54)
== END 2021-05-09 00:20 | disposition home or self-care (01) ==
LOC: JP.ED 19:59
DX: R41.0 Disorientation, unspecified (principal); I25.10 Atherosclerotic heart disease of native coronary artery without angina pectoris; I10 Essential (primary) hypertension; I25.2 Old myocardial infarction; Z88.5 Allergy status to narcotic agent; Z88.0 Allergy status to penicillin; Z79.82 Long term (current) use of aspirin; Z79.899 Other long term (current) drug therapy
CPT/HCPCS: 36415; 71275; 80053; 81001; 83605; 84145; 84484; 85025; 85379; 86140; 87040; 99283; 99285; A9270; J7120; Q9967; J3490

== ENCOUNTER 2024-12-21 15:25 | Emergency (ER) | payer OTHER, MEDICARE, BC | END 2024-12-21 16:44 | disposition home or self-care (01) | LOC: JP.ED 15:25 | DX: R04.0 Epistaxis (principal); I10 Essential (primary) hypertension; E78.00 Pure hypercholesterolemia, unspecified; Z87.891 Personal history of nicotine dependence; Z88.0 Allergy status to penicillin; Z88.5 Allergy status to narcotic agent; Z79.82 Long term (current) use of aspirin; Z79.899 Other long term (current) drug therapy | CPT/HCPCS: 99283 ==

== ENCOUNTER 2024-12-22 07:40 | Emergency (ER) | payer BC, MEDICARE, OTHER | END 2024-12-22 08:43 | disposition home or self-care (01) | LOC: JP.ED 07:40 | DX: R04.0 Epistaxis (principal); E78.00 Pure hypercholesterolemia, unspecified; I10 Essential (primary) hypertension; Z88.5 Allergy status to narcotic agent; Z88.0 Allergy status to penicillin; Z79.82 Long term (current) use of aspirin; Z79.899 Other long term (current) drug therapy | CPT/HCPCS: 30903; 99283-25 ==

== ENCOUNTER 2024-12-24 16:45 | Emergency (ER) | payer OTHER, MEDICARE, BC | END 2024-12-24 18:40 | disposition home or self-care (01) | LOC: JP.ED 16:45 → JP.EDOUT 16:45 → EDSTATUS 16:49 → JP.ED 18:40 | DX: R04.0 Epistaxis (principal); I10 Essential (primary) hypertension; E78.00 Pure hypercholesterolemia, unspecified; Z88.5 Allergy status to narcotic agent; Z88.0 Allergy status to penicillin; Z79.82 Long term (current) use of aspirin; Z79.899 Other long term (current) drug therapy; Z87.891 Personal history of nicotine dependence | CPT/HCPCS: 30901; 96374; 99282-25; 99283; A9270-GY ==